=== PATIENT | male | born 1970 | race African-American/Black ===

== ENCOUNTER 2023-05-15 07:28 | Inpatient (IN) | payer OTHER ==
[2023-05-08 14:53] LABS: BASOPHILS # (AUTO) 0.1 X10'3 (0-0.2); BASOPHILS % (AUTO) 0.8 % (0-1); EOSINOPHILS # (AUTO) 0.1 X10'3 (0-0.9); EOSINOPHILS % (AUTO) 1.1 % (0-6); LYMPHOCYTES # (AUTO) 3.3 X10'3 (1.1-4.8); LYMPHOCYTES % (AUTO) 42.9 % (21-51); MEAN CORPUSCULAR HEMOGLOBIN 26.7 PG (27.0-31.0); MEAN CORPUSCULAR HGB CONC 33.7 g/dL (33.0-36.5); MEAN CORPUSCULAR VOLUME 79.4 FL (78-98); MONOCYTES # (AUTO) 0.8 X10'3 (0-0.9); MONOCYTES % (AUTO) 10.5 % (2-12); NEUTROPHILS # (AUTO) 3.4 X10'3 (1.8-7.7); NEUTROPHILS % (AUTO) 44.7 % (42-75); PRE OP HEMATOCRIT 38.9 % (42.0-52.0); PRE OP HEMOGLOBIN 13.1 g/dL (14.0-17.9); PRE OP PLATELET COUNT 347 X10'3 (140-440); PRE OP WHITE BLOOD COUNT 7.6 10'3 (4.8-10.8)
[2023-05-08 15:07] LABS: CHLORIDE 104 MMOL/L (99-107); PRE OP GLUCOSE 115 MG/DL (70-104); PRE OP POTASSIUM 3.7 MMOL/L (3.4-5.1); PRE OP SODIUM 139 MMOL/L (135-145); TOTAL CARBON DIOXIDE 25.6 MMOL/L (24-32)
[2023-05-08 15:08] LABS: ALBUMIN 3.9 G/DL (3.4-5.0); ALBUMIN/GLOBULIN RATIO 0.9 (1.1-1.5); ALKALINE PHOSPHATASE 115 IU/L (46-116); BLOOD UREA NITROGEN 4 MG/DL (7-18); BUN/CREATININE RATIO 3.1 (10.0-20.0); CALCIUM 9.7 MG/DL (8.5-10.1); CREATININE 1.28 MG/DL (0.60-1.10); PRE OP ALT 8 U/L (30-65); PRE OP ANION GAP 9 (8-16); PRE OP AST 13 U/L (10-37); PRE OP BILIRUB, TOTAL 0.4 MG/DL (0.0-1.0); TOTAL PROTEIN 8.2 G/DL (6.4-8.2); eGFR 71 ML/MIN
[2023-05-15] VITALS (25 sets, daily range): BP systolic 95–166; BP diastolic 60–112; PULSE 67–110; RESP 12–20; TEMP 96.7–99; O2SAT 98–100
[~2023-05-15] VITALS: Ht 193 cm; Wt 149.7 kg
[~2023-05-15 07:28] MED LIST: AMLO10TA PO; ATOR10TA70 PO; LAMO100T2 PO; LAMO150T6 PO; LEVO200C2 PO; LURA60TA PO; PALI6TAB PO; ceFAZolin inj. 3,000 MG in normal saline 100ml IV soln 100 ML IV ONE; famotidine 20mg tablet PO ONE; ringers solution, lacted 1,000 ML IV SCH; tranexamic acid 650mg tablet PO ONE; vancomycin 1,500 MG in NS 300ml IV soln IV ONE
--- NOTE | 2023-05-15 07:35 | NUR ---
PT HERE FOR L TKA. PT COMPLETED 5 DAYS OF HIBICLENS SHOWERS 1X DAILY AND NASAL OINTMENT 2X/DAY. HE DID NOT READ ANY EDUCATION MATERIAL AND DID NOT HAVE ANY QUESTIONS. IS TEACHING WAS PROVIDED AT BEDSIDE. CSM WNL. PEDAL PULSES STRONG AND MARKED. PT HAS BEEN TAKING 325MG ASA FOR THE LAST [address] ZHAO AND HE SAID THE CASE IS OK TO PROCEED. I ALSO VERIFIED THAT DR. ZHAO WAS AWARE OF PCN ALLERGY DUE TO ANCEF ORDER, HE SAID IT WAS OK TO PROCEED.
[2023-05-15] MEDS ORDERED: ASPI-1264 PO (08:42)
[2023-05-15] MEDS ORDERED: tetracaine 1% (10mg/ml) pres. free inj. ONE (10:22)
[2023-05-15] MEDS ORDERED: BUPIVACAINE/MELOXICAM 14 ML VIAL IL ONE ×2 (10:23→11:21)
[2023-05-15] MEDS ORDERED: MIDAZolam 1mg/ml 10ml vial ONE ×2 (10:28→11:55)
[2023-05-15] MEDS ORDERED: ondansetron/PF 4mg/2ml inj IV PRN ×2 (10:45→11:20)
[2023-05-15] MEDS ORDERED: bisacodyl 10mg suppository rectal RC PRN (10:45)
[2023-05-15] MEDS ORDERED: oxyCODONE IR 5mg (immed. release) tablet PO PRN (10:45)
[2023-05-15] MEDS ORDERED: magnesium hydroxide 30ml (MOM) UD suspension PO PRN (10:45)
[2023-05-15] MEDS ORDERED: naloxone 0.4 mg/ml inj IV PRN (10:45)
[2023-05-15] MEDS ORDERED: diphenhydrAMINE 25mg capsule PO PRN ×2 (10:45)
[2023-05-15] MEDS ORDERED: acetaminophen 325mg tablet PO PRN (10:45)
[2023-05-15] MEDS ORDERED: HYDROmorphone inj. 0.5 MG/0.5 ML DISP.SYRIN IV PRN (10:45)
[2023-05-15] MEDS ORDERED: ROPIVAcaine 0.5% (5mg/ml) 30ml vial ONE (11:15)
[2023-05-15] MEDS ORDERED: morphine 4 MG/ML inj SYRINge IV PRN (11:20)
[2023-05-15] MEDS ORDERED: labetalol 20mg/4ml (5mg/ml) syringe IV PRN (11:20)
[2023-05-15] MEDS ORDERED: fentaNYL/PF 50MCG/1 ML 2ML syringe IV PRN ×2 (11:20)
[2023-05-15] MEDS ORDERED: ringers solution, lacted 1,000 ML IV SCH (11:20)
[2023-05-15] MEDS ORDERED: morphine 2 MG/ML inj. syringe IV PRN (11:20)
[2023-05-15] MEDS ORDERED: hydrALAZINE 20mg/ml inj. IV PRN (11:20)
--- NOTE | 2023-05-15 12:45 | NUR ---
Received from OR via HOSPITAL BED, accompanied by Anesthesiologist DR GASTELUM and report given by Anesthesiologist. PT IS AWAKE AND ANSWERS QUESTIONS APPROPRIATELY AND FOLLOWS COMMANDS. PT PLACED ON BEDSIDE, VSS. PT IS RECEIVING 8L O2 TO MASK AND TOLERATING WELL WITH O2 SAT >96%, WILL TITRATE DOWN PT TOLERATES. PT HAS 20G PIV TO LEFT AC WITH LR INFUSING ORDERED. PT HAS DRSG TO LEFT KNEE WITH KNEE WRAP IN PLACE AND ICE-PACK. PT IS UNABLE TO MOVE LE'S AT THIS TIME D/T SPINAL. PT DOES HAVE PALPABLE PULSES TO BILAT DORSALIS PEDIS. PT HAS FEELING AT DERMATOME L2 LEVEL. PT DENIES PAIN AT THIS TIME. WILL CONTINUE TO ASSESS.
--- NOTE | 2023-05-15 14:51 | NUR ---
Patient in room PAS IN 901. I have received report from Hannah in recovery and had the opportunity to ask questions and assume patient care.
--- NOTE | 2023-05-15 15:10 | NUR ---
PATIENT HAS MET ALL CRITERIA FOR TRANSFER TO THE ORTHO FLOOR. VSS. DRESSINGS INTACT. BED LOW, CALL LIGHT PRESENT AND 2 RAILS UP. RN PRESENT TO ACCEPT CARE OF PATIENT AND REPORT HAS BEEN CALLED TO QUITA ROMERO. ALL QUESTIONS ANSWERED TO ACCEPTING RN.
[2023-05-15] MEDS: acetaminophen 325mg tablet PO SCH ×2 (15:58→20:50)
[2023-05-15] MEDS: oxyCODONE IR 5mg (immed. release) tablet PO PRN ×2 (16:50→20:50)
[2023-05-15] MEDS: potassium cl 20mEq in 1/2 NS 1,000 ML IV SCH ×2 (17:33→18:45)
[2023-05-15] MEDS: ceFAZolin/D5W- 1GM premix 50 ML IV SCH (17:33)
[2023-05-15] MEDS: HYDROmorphone 1 mg/ml syringe IV PRN (18:00)
--- NOTE | 2023-05-15 19:23 | NUR ---
Problems reprioritized. Patient report given, questions answered & plan of care reviewed with
[2023-05-15] MEDS ORDERED: vancomycin/NS 1 GM ADD-VANTAGE 250 ML IV SCH (20:00)
[2023-05-15] MEDS ORDERED: lamoTRIgine 100mg tablet PO SCH (21:00)
[2023-05-15] MEDS ORDERED: lurasidone 60mg tablet PO SCH (21:00)
[2023-05-15] MEDS ORDERED: sennosides 8.6mg tablet PO SCH (21:00)
[2023-05-16] MEDS: ceFAZolin/D5W- 1GM premix 50 ML IV SCH (00:49)
[2023-05-16 01:55] VITALS: BP 131/90; PULSE 106; RESP 18; TEMP 98.4; O2SAT 97
[2023-05-16] MEDS: oxyCODONE IR 5mg (immed. release) tablet PO PRN ×4 (02:10→16:49)
[2023-05-16] MEDS: potassium cl 20mEq in 1/2 NS 1,000 ML IV SCH ×2 (02:10→10:45)
[2023-05-16] MEDS: acetaminophen 325mg tablet PO SCH ×3 (02:10→14:10)
[2023-05-16 06:44] LABS: BASOPHILS % (AUTO) 0.3 % (0-1); EOSINOPHILS % (AUTO) 0 % (0-6); HEMATOCRIT 31.4 % (42.0-52.0); HEMOGLOBIN 10.6 g/dl (14.0-17.9); LYMPHOCYTES # (AUTO) 2.1 X10'3 (1.1-4.8); MEAN CORPUSCULAR HGB CONC 33.8 g/dL (33.0-36.5); MEAN CORPUSCULAR VOLUME 79.9 FL (78-98); MEAN PLATELET VOLUME 7.1 FL (7.4-10.4); MONOCYTES # (AUTO) 1.6 X10'3 (0-0.9); MONOCYTES % (AUTO) 15.9 % (2-12); NEUTROPHILS # (AUTO) 6.3 X10'3 (1.8-7.7); NEUTROPHILS % (AUTO) 62.8 % (42-75); PLATELET COUNT 313 X10'3 (140-440); RED BLOOD COUNT 3.94 X10'6 (4.70-6.10); RED CELL DISTRIBUTION WIDTH 14.5 % (11.5-14.5); WHITE BLOOD COUNT 10.1 X10'3 (4.5-11.0)
[2023-05-16] MEDS ORDERED: levoTHYROXINE 100mcg tablet PO SCH (07:00)
[2023-05-16 07:12] LABS: ANION GAP 9 (8-16); CHLORIDE 102 MMOL/L (99-107); POTASSIUM 4.1 MMOL/L (3.5-5.1); SODIUM 135 MMOL/L (135-145); TOTAL CARBON DIOXIDE 24.4 MMOL/L (24-32)
[2023-05-16 07:49] VITALS: RESP 16; O2SAT 99
[2023-05-16 08:00] LABS: PLATELET ESTIMATE NORMAL; TOTAL CELLS COUNTED 100
[2023-05-16] MEDS ORDERED: amLODIPine 5mg tablet PO SCH (08:00)
[2023-05-16] MEDS ORDERED: lamoTRIgine 100mg tablet PO SCH (08:00)
[2023-05-16] MEDS ORDERED: aspirin 325mg tablet PO SCH ×2 (08:00→08:30)
[2023-05-16] MEDS ORDERED: atorvastatin 10mg tablet PO SCH (08:00)
[2023-05-16] MEDS ORDERED: PALIPERIDONE 3 MG TAB.ER.24 PO SCH (08:00)
[2023-05-16 08:01] LABS: BURR CELLS FEW; ELLIPTOCYTES FEW; MICROCYTOSIS 1+; TEAR DROP CELLS FEW
[2023-05-16 10:46] VITALS: BP 131/82; PULSE 98; RESP 18; TEMP 98.1; O2SAT 100
--- NOTE | 2023-05-16 10:57 | NUR ---
Joint surgery consult: Pt s/p L knee surgery this admit per EMR. Pt seen by ZOFIA at bedside for written/verbal high protein diet ed w/ RD contact information provided. ZOFIA encouraged pt to contact dietitian's office if further nutrition questions/concerns. Addendum: 05/16/23 at [address] Amended: Links added.
--- NOTE | 2023-05-16 11:26 | NUR ---
Asked patient about his allergies to acetaminophen and hydrocodone, he sated that he is fine with both of these, but has reactions to percocet and vicodine. He sates that he starts itching so much it begins to bleed. Patient agreed to taking oxycodone and acetaminophen and stated he does not have a reaction with these.
[2023-05-16 13:37] VITALS: RESP 12; O2SAT 100
[2023-05-16] MEDS: HYDROmorphone 1 mg/ml syringe IV PRN (14:58)
[2023-05-16 16:49] VITALS: RESP 15
--- NOTE | 2023-05-16 17:00 | NUR ---
DISCHARGE NOTE: Reviewed discharge paperwork with patient. Discussed post-op medications (prescribed by MD Doyle's office) and possible ASE. Talked about f/u care. Pt. states he already has f/u appointment in [address] Doyle. Surgeon aware of sanguinous oozing from incision. Asked for nursing to clean, replace starry strips, and change bandage before discharge. This was completed. Pt. participated and asked questions. Good verbal feedback on all education. Infection control and s/sx infection discussed with pt. Written handouts also given to pt. on incisional care. Discussed exercise, icing, elevation, reasons to call surgeon with pt. Pt given extra bandages and his two ice packs. Discussed IS use. PT gathered all belongings, PIV DC'd by SRN, cannula intact, dressing applied. Pt. given extra compression knee wraps- discussed regimen for using these. Pt. had the opportunity to ask questions. stated pt. can shower in 6 days and pt. made aware. Pt. escorted in a w/c downstairs to his daughters vehicle to discharge home.
[2023-05-17] MEDS ORDERED: acetaminophen 325mg tablet PO PRN (10:45)
== END 2023-05-16 17:00 | disposition home or self-care (01) | DRG 470 ==
LOC: PAS IN 07:28 → UNDOADMIN 07:28 → PAS IN 10:48 → UNDOADMIN 10:48 → PAS IN 15:02 → ORTHO 4S 15:02
PROVIDERS: ADMIT Orthopaedic Surgery; ATTEND Orthopaedic Surgery
PROC: 8E0Y0CZ Robotic Assisted Procedure of Lower Extremity, Open Approach (ICD-10-PCS; 2023-05-15)
PROC: 8E0YXBZ Computer Assisted Procedure of Lower Extremity (ICD-10-PCS; 2023-05-15)
PROC: 3E0T3BZ Introduction of Anesthetic Agent into Peripheral Nerves and Plexi, Percutaneous Approach (ICD-10-PCS; 2023-05-15)
PROC: 3E0T33Z Introduction of Anti-inflammatory into Peripheral Nerves and Plexi, Percutaneous Approach (ICD-10-PCS; 2023-05-15)
PROC: 0SRD0J9 Replacement of Left Knee Joint with Synthetic Substitute, Cemented, Open Approach (ICD-10-PCS; principal; 2023-05-15 10:31)
DX: M17.32 Unilateral post-traumatic osteoarthritis, left knee (principal); M21.162 Varus deformity, not elsewhere classified, left knee
CPT/HCPCS: 36415; 80051; 80053; 82948; 85007; 85025; 87081; 97110; 97116; 97161; A4215; A6449; A7000; C1713; C1776; G0378; J0690; J1170; J2250; J2795; J3370; J3480; J3490; J7120

== ENCOUNTER 2023-05-30 08:10 | Emergency (ER) | payer OTHER, MEDICARE, MEDICAID ==
[~2023-05-30] VITALS: Ht 193 cm; Wt 148.0 kg
[~2023-05-30 08:10] MED LIST changes: +ASPI-1264 PO; -ceFAZolin inj. 3,000 MG in normal saline 100ml IV soln 100 ML IV ONE; -famotidine 20mg tablet PO ONE; -ringers solution, lacted 1,000 ML IV SCH; -tranexamic acid 650mg tablet PO ONE; -vancomycin 1,500 MG in NS 300ml IV soln IV ONE
[2023-05-30 08:20] VITALS: TEMP 98.7
--- NOTE | 2023-05-30 08:42 | NUR ---
Pt alert and oriented, reports swelling and itchiness. Denies difficulty breathing, VS WNL. Ventilating well on RA. Left AC IV established.
[2023-05-30] MEDS ORDERED: dexamethasone sod phosphate 10mg/ml inj IV STA (09:28)
[2023-05-30] MEDS ORDERED: famotidine/PF 10 mg/ml inj IV ONE (09:30)
[2023-05-30] MEDS ORDERED: diphenhydrAMINE 50 mg/ml inj IV ONE (09:30)
[2023-05-30 10:27] LABS: BASOPHILS % (AUTO) 0.1 % (0-1); EOSINOPHILS # (AUTO) 0.1 X10'3 (0-0.9); EOSINOPHILS % (AUTO) 0.6 % (0-6); HEMATOCRIT 30.8 % (42.0-52.0); LYMPHOCYTES # (AUTO) 2.2 X10'3 (1.1-4.8); LYMPHOCYTES % (AUTO) 14.8 % (21-51); MEAN CORPUSCULAR HGB CONC 32.6 g/dL (33.0-36.5); MEAN CORPUSCULAR VOLUME 79.8 FL (78-98); MEAN PLATELET VOLUME 6.7 FL (7.4-10.4); MONOCYTES # (AUTO) 0.9 X10'3 (0-0.9); MONOCYTES % (AUTO) 5.9 % (2-12); NEUTROPHILS # (AUTO) 11.5 X10'3 (1.8-7.7); NEUTROPHILS % (AUTO) 78.6 % (42-75); PLATELET COUNT 756 X10'3 (140-440); RED BLOOD COUNT 3.86 X10'6 (4.70-6.10); RED CELL DISTRIBUTION WIDTH 15.3 % (11.5-14.5); WHITE BLOOD COUNT 14.6 X10'3 (4.5-11.0)
[2023-05-30 10:39] LABS: ALANINE AMINOTRANSFERASE 14 U/L (12-78); ALBUMIN 3.6 G/DL (3.4-5.0); ALBUMIN/GLOBULIN RATIO 0.8 (1.1-1.5); ALKALINE PHOSPHATASE 105 IU/L (46-116); ANION GAP 11 (8-16); ASPARTATE AMINO TRANSFERASE 14 U/L (10-37); BILIRUBIN,TOTAL 0.5 MG/DL (0.1-1.0); BLOOD UREA NITROGEN 10 MG/DL (7-18); BUN/CREATININE RATIO 11.2 (10.0-20.0); CALCIUM 9.5 MG/DL (8.5-10.1); CHLORIDE 99 MMOL/L (99-107); CREATININE 0.89 MG/DL (0.60-1.10); GLUCOSE 117 MG/DL (70-104); POTASSIUM 4.2 MMOL/L (3.5-5.1); SODIUM 132 MMOL/L (135-145); eCRCL 116 ML/MIN; eGFR > 90 ML/MIN
--- NOTE | 2023-05-30 10:56 | NUR ---
Pt reports improved reaction symptoms.
[2023-05-30] MEDS ORDERED: METH4TAB81 PO (11:52)
[2023-05-30] MEDS ORDERED: FAMO40TA73 PO (11:52)
[2023-05-30] MEDS ORDERED: DIPH-423 PO (11:54)
[2023-05-30 12:17] VITALS: BP 152/107; PULSE 101; RESP 16; O2SAT 100
[2023-05-30 14:10] LABS: MICROCYTOSIS 1+; PLATELET ESTIMATE INCREASED
== END 2023-05-30 12:12 | disposition home or self-care (01) ==
LOC: ER 08:11
DX: L50.9 Urticaria, unspecified (principal); I10 Essential (primary) hypertension; Z88.0 Allergy status to penicillin; Z79.899 Other long term (current) drug therapy; Z88.6 Allergy status to analgesic agent; Z88.8 Allergy status to other drugs, medicaments and biological substances
CPT/HCPCS: 80053; 85008; 85025; 96374; 96375; 99285; J1100; J1200; J3490